=== PATIENT | male | born 1980 | race Caucasian/White ===

== ENCOUNTER 2016-11-01 05:22 | Emergency (ER) | payer BC ==
[2016-11-01 05:39] VITALS: TEMP 97.6
--- NOTE | 2016-11-01 05:46 | C.PDOC ---
History Of Present Illness Patient presents to the ER with a complaint of chest pressure that has been worsening over the last hour. Patient is speaking in complete sentences. Patient denies fever, chills, nausea, and vomiting. Time Seen by Provider: 11/01/16 05:46 Chief Complaint (Nursing): Chest Pain History Per: Patient History/Exam Limitations: no limitations Onset/Duration Of Symptoms: Hrs (1) Current Symptoms Are (Timing): Still Present Context: Other (Worsening ) Severity: Moderate Pain Scale Rating Of: 4 Quality: Pressure Associated Symptoms: denies: Nausea Modifying Factors: None Exacerbating Factors: None Alleviating Factors: None Recent travel outside of the [place]: No Past Medical History Reviewed: Historical Data, Nursing Documentation, Vital Signs Vital Signs: Last Vital Signs Temp 97.6 F 11/01/16 05:32 Pulse 70 11/01/16 06:00 Resp 18 11/01/16 06:00 BP 127/82 11/01/16 06:00 Pulse Ox 100 11/01/16 06:10 - Medical History PMH: No Chronic Diseases Surgical History: No Surg Hx Family History: States: No Known Family Hx - Social History Hx Alcohol Use: No Hx Substance Use: Yes - Immunization History Hx Tetanus Toxoid Vaccination: No Hx Influenza Vaccination: No Hx Pneumococcal Vaccination: No Review Of Systems Constitutional: Negative for: Fever, Chills Cardiovascular: Positive for: Chest Pain (Pressure) Gastrointestinal: Negative for: Nausea, Vomiting Physical Exam - Physical Exam Appears: Well, Non-toxic Skin: Warm, Dry Oral Mucosa: Moist Chest: Symmetrical, No Tenderness Cardiovascular: Rhythm Regular, No Murmur Respiratory: No Rales, No Rhonchi, No Wheezing Gastrointestinal/Abdominal: Soft, No Tenderness Neurological/Psych: Oriented x3 ED Course And Treatment - Laboratory Results Result Diagrams: 11/01/16 05:57 11/01/16 05:57 ECG: Interpreted By Me, Viewed By Me ECG Rhythm: Sinus Rhythm (69), Nonspecific Changes (unchanged from 12/18/15) O2 Sat by Pulse Oximetry: 100 Pulse Ox Interpretation: Normal - Radiology CXR: Interpreted by Me, Viewed By Me CXR Interpretation: Yes: Other (unchanged from 12/08/15). No: Infiltrates, Fracture, Pnemothorax Progress Note: EKG, blood work, CXR, and urinalysis ordered. Aspirin PO administered. Upon provider reevaluation patient is feeling better, is medically stable, and requires no further treatment in the ED at this time. Patient will be discharged home with Rx for protonix . Counseling was provided and all questions were answered regarding diagnosis and need for follow up with the referred clinic. There is agreement to discharge plan. Return if symptoms persist or worsen. Reevaluation Time: 06:47 Reassessment Condition: Improved Medical Decision Making Medical Decision Making: I considered the following diagnoses: acute coronary syndrome, pulmonary embolism, lower respiratory infection, aortic dissection/aneurysm, pneumothorax , pericarditis, esophagitis/GERD, zoster and esophageal rupture but found them to be unlikely based on the history, physical exam, and diagnostics. My conclusions regarding the unlikely diagnoses were based on: the absence of significant EKG abnormalities, the lack of suggestive x-ray findings, the absence of significant abnormalities on cardiac monitoring, the absence of asymmetric pulses,Pt feels fine and wants to go home Disposition Counseled Patient/Family Regarding: Studies Performed, Diagnosis, Need For Followup - Disposition Referrals: [facility] [Outside] [facility] [Outside] Disposition: HOME/ ROUTINE Disposition Time: 05:46 Condition: FAIR Prescriptions: Pantoprazole Sodium [Protonix] 20 mg PO DAILY #15 tablet.dr Instructions: Gastroesophageal Reflux Disease (ED), Chest Pain (DC) - Clinical Impression Clinical Impression: Chest pain, GERD (gastroesophageal reflux disease) - Scribe Statement The provider has reviewed the documentation as recorded by the Scribe Hilton Castro All medical record entries made by the Scribe were at my direction and personally dictated by me. I have reviewed the chart and agree that the record accurately reflects my personal performance of the history, physical exam, medical decision making, and the department course for this patient. I have also personally directed, reviewed, and agree with the discharge instructions and disposition.
[2016-11-01] MEDS ORDERED: Aspirin 325 mg EC Tablets PO STA (05:47)
[2016-11-01 06:02] VITALS: RESP 18
[2016-11-01 06:02] LABS: BASO % 0.3 % (0.0-2.0); EOS # 0.8 K/uL (0.0-0.7); EOS % 16.7 % (0.0-4.0); HEMATOCRIT 41.5 % (35.0-51.0); LYMPH # 1.5 K/uL (1.0-4.3); LYMPH % 30.1 % (20.0-40.0); MEAN CELL VOLUME 75.2 fL (80.0-94.0); MEAN CORPUSCULAR HEMOGLOBIN 25.8 pg (27.0-31.0); MEAN CORPUSCULAR HGB CONC 34.3 g/dL (33.0-37.0); MEAN PLATELET VOLUME 8.2 fL (7.2-11.7); MONO # 0.4 K/uL (0.0-0.8); MONO % 7.3 % (0.0-10.0); NRBC % 0.1 % (0.0-2.0); RED CELL DISTRIBUTION WIDTH 13.6 % (11.5-14.5); WHITE BLOOD COUNT 5.1 K/uL (4.8-10.8)
[2016-11-01 06:08] LABS: INR 1.2
[2016-11-01 06:12] LABS: CHLORIDE 102 mmol/L (98-107)
[2016-11-01 06:13] LABS: POTASSIUM 3.8 mmol/L (3.6-5.2); SODIUM 141 mmol/L (132-148)
[2016-11-01 06:15] LABS: ALB/GLOB RATIO 1.4 (1.0-2.1); AST/SGOT 23 U/L (17-59); BILIRUBIN,TOTAL 0.8 mg/dL (0.2-1.3); BLOOD UREA NITROGEN 10 mg/dL (9-20); CARBON DIOXIDE 28 mmol/L (22-30); GFR AFRICAN-AMERICAN > 60; TOTAL PROTEIN 6.7 g/dL (6.3-8.3)
[2016-11-01 06:16] LABS: ALKALINE PHOSPHATASE 72 U/L (38-126); ALT/SGPT 31 U/L (21-72); CALCIUM 8.7 mg/dl (8.6-10.4); GLUCOSE,RANDOM 93 mg/dL (75-110)
[2016-11-01] MEDS ORDERED: Aspirin 325 mg EC Tablets PO ONE (06:32)
[2016-11-01 06:53] LABS: URINE BILIRUBIN NEGATIVE (NEGATIVE); URINE BLOOD NEGATIVE (NEGATIVE); URINE COLOR Yellow (YELLOW); URINE GLUCOSE (UA) NORMAL (Normal); URINE KETONE NEGATIVE (NEGATIVE); URINE LEUKOCYTE ESTERASE NEG Leu/uL (Negative); URINE PROTEIN NEGATIVE (NEGATIVE); URINE UROBILINOGEN NORMAL mg/dL (0.2-1.0)
[2016-11-01 07:15] VITALS: BP 130/85; PULSE 72; O2SAT 99
--- NOTE | 2016-11-01 09:45 | RAD ---
HISTORY: chest pain COMPARISON: Chest x-ray performed 12/08/15 TECHNIQUE: Chest, one view. FINDINGS: LUNGS: No focal consolidation. Please note that chest x-ray has limited sensitivity for the detection of pulmonary masses. PLEURA: No significant pleural effusion identified. No definite pneumothorax . CARDIOVASCULAR: The cardiomediastinal silhouette appears within normal limits of size. OSSEOUS STRUCTURES: No acute osseous abnormality identified. VISUALIZED UPPER ABDOMEN: Unremarkable. OTHER FINDINGS: None. IMPRESSION: No focal consolidation, significant pleural effusion, or definite pneumothorax identified.
--- NOTE | 2016-11-03 14:06 | CARD ---
APPROVED REPORT EKG Measurement Heart [id number] CT [id number] <Conclusion> Normal sinus rhythm Septal infarct, age undetermined Abnormal ECG
== END 2016-11-01 07:14 | disposition home or self-care (01) ==
LOC: C.ER 05:22
DX: K21.9 Gastro-esophageal reflux disease without esophagitis (principal); R07.9 Chest pain, unspecified
CPT/HCPCS: 71010; 80053; 81001; 84484; 85025; 85610; 85730; 93005; 96374; 99284; C9113

== ENCOUNTER 2018-07-18 18:30 | Emergency (ER) | payer BC, OTHER ==
[2018-07-18 18:44] VITALS: BMI 28.5
[2018-07-18 18:49] VITALS: RESP 18; TEMP 98.3
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
[2018-07-18 20:54] VITALS: BP 115/77; PULSE 69
[2018-07-18 22:37] VITALS: O2SAT 100
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
== END 2018-07-18 20:53 | disposition home or self-care (01) ==
LOC: C.ER 18:30
DX: S90.32XA Contusion of left foot, initial encounter (principal); V03.90XA Pedestrian on foot injured in collision with car, pick-up truck or van, unspecified whether traffic or nontraffic accident, initial encounter

== ENCOUNTER 2018-07-27 10:59 | Emergency (ER) | payer OTHER ==
[2018-07-27 10:59] VITALS: BMI 28.5
[2018-07-27 11:06] VITALS: BP 107/72; PULSE 71; RESP 18; TEMP 98.1; O2SAT 99
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
== END 2018-07-27 13:17 | disposition home or self-care (01) ==
LOC: C.ER 10:59
DX: S90.32XD Contusion of left foot, subsequent encounter (principal); V09.9XXD Pedestrian injured in unspecified transport accident, subsequent encounter
CPT/HCPCS: 97116; 97161; 99283; G8978; G8979; G8980